=== PATIENT | male | born 1995 | race Caucasian/White ===

== ENCOUNTER 2022-04-10 01:18 | Emergency (ER) | payer BC ==
[~2022-04-10] VITALS: Ht 185.4 cm; Wt 127.0 kg
[2022-04-10 01:28] VITALS: BP_SYST 134
--- NOTE | 2022-04-10 01:40 | NUR ---
Patient to ER bed 8 to gown for evaluation. Side rails up. Report given to ELANA ANGULO(REG).
--- NOTE | 2022-04-10 01:44 | NUR ---
ER Dr. LOW at bedside examining patient.
--- NOTE | 2022-04-10 03:03 | NUR ---
Patient given written and verbal discharge instructions and verbalizes understanding. ER MD discussed with patient the results and treatment provided. Patient in stable condition. ID arm band removed. Patient educated on pain management and to follow up with PMD. Pain Scale 0/10. Opportunity for questions provided and answered. Medication side effect fact sheet provided.
== END 2022-04-10 03:02 | disposition home or self-care (01) ==
LOC: SED 01:18
DX: R51.9 Headache, unspecified (principal); Z79.899 Other long term (current) drug therapy
CPT/HCPCS: 70450-TC; 76376; 99284